=== PATIENT | female | born 1950 | race Two or more races ===

== ENCOUNTER 2016-07-30 08:14 | Day surgery (SDC) | payer MEDICAID ==
[~2016-07-30] VITALS: Ht 167.6 cm; Wt 100.0 kg
[~2016-07-30 08:14] MED LIST: ALBU8.5H5 INH; ASPI-515 PO; BACITRACIN OINT 500U/GM, 15 GM ONE; BUDE10.22 INH; CALC600T4 PO; CHOL20003 PO; CRAN400T6 PO; CYCL-259 PO; EPINEPHRINE TOPICAL SOLN 1 MG/ML, 30ML ONE; FLUO40CA2 PO; FLUORESCEIN OPHTHALMIC 1 MG STRIP ONE; FLUT1AER INH; HYDR200T PO; LEVO50TA5 PO; LIDOCAINE 1%-EPI 1:100K, 30ML ONE; METH2.5T PO; MULT-26 PO; NAPR220C2 PO; OMEG300C PO; OMEP20CA9 PO; OXYMETAZOLINE NASAL SPRAY 0.05%, 15ML ONE; PRED1TAB PO; PROP60CA8 PO; TRAZ100T15 PO; VITA1TAB19 PO
[2016-07-30 08:53] VITALS: BP 150/82
[2016-07-30] MEDS ORDERED: LACTATED RINGERS 1,000 ML IV SCH (09:13)
[2016-07-30] MEDS ORDERED: MULT-717 PO (09:40)
[2016-07-30] MEDS ORDERED: UBID1CAP52 PO (09:40)
[2016-07-30] MEDS ORDERED: FENTANYL PF 100 MCG/2ML ONE (09:40)
[2016-07-30] MEDS ORDERED: PROP40TA PO (09:40)
[2016-07-30] MEDS ORDERED: CRAN300T PO (09:40)
[2016-07-30] MEDS ORDERED: AMLO2.5T PO (09:40)
[2016-07-30] MEDS ORDERED: VENL150T PO (09:40)
[2016-07-30] MEDS ORDERED: LEVO50TA5 PO (09:40)
[2016-07-30] MEDS ORDERED: PANT40TA5 PO (09:40)
[2016-07-30] MEDS ORDERED: ASPI-496 PO (09:40)
[2016-07-30] MEDS ORDERED: ACET1TAB64 PO (09:40)
[2016-07-30] MEDS ORDERED: ACYCLOVIR (09:40)
[2016-07-30] MEDS ORDERED: FLUT50DI NAS (09:40)
[2016-07-30] MEDS ORDERED: MELA10TA PO (09:40)
[2016-07-30] MEDS ORDERED: FISH1CAP PO (09:40)
[2016-07-30] MEDS ORDERED: CHOL20002 PO (09:40)
[2016-07-30] MEDS ORDERED: CYCL-259 PO (09:40)
[2016-07-30] MEDS ORDERED: ATOR40TA78 PO (09:40)
[2016-07-30] MEDS ORDERED: vitamin d (09:40)
[2016-07-30] MEDS ORDERED: PIRO20CA2 PO (09:40)
[2016-07-30] MEDS ORDERED: VITA150T PO (09:40)
[2016-07-30] MEDS ORDERED: ASCO100072 PO (09:40)
[2016-07-30] MEDS ORDERED: TRAZ100T15 PO (09:40)
[2016-07-30] MEDS ORDERED: MOME13HF INH (09:40)
[2016-07-30] MEDS ORDERED: ONDA4TAB7 PO (09:40)
[2016-07-30] MEDS ORDERED: PRIM50TA PO (09:40)
[2016-07-30] MEDS ORDERED: CALC1CAP8 PO (09:40)
[2016-07-30] MEDS ORDERED: OXYcodone 5 MG/5 ML ORAL.SOL UDC PO PRN (10:00)
[2016-07-30] MEDS ORDERED: HYDROmorphone 1 MG/ML, 1ML IV PRN (10:00)
[2016-07-30] MEDS ORDERED: ONDANSETRON 2MG/ML, 2ML IVPush PRN (10:00)
[2016-07-30] MEDS ORDERED: FENTANYL PF 100 MCG/2ML IV PRN (10:00)
[2016-07-30] MEDS ORDERED: hydrALAzine 20 MG/ML, 1ML IV PRN (10:00)
[2016-07-30] MEDS ORDERED: LABETALOL 5MG/ML, 20ML IV PRN (10:00)
[2016-07-30] MEDS ORDERED: PROMETHAZINE 25 MG/ML, 1ML IV PRN (10:00)
[2016-07-30] MEDS ORDERED: OXYcodone 5 MG/5 ML ORAL.SOL UDC ONE (11:08)
[2016-07-30] MEDS ORDERED: ACETAMINOPHEN 650 MG/20.3 ML UDC ONE (11:31)
[2016-07-30] MEDS ORDERED: ACETAMINOPHEN 650 MG/20.3 ML UDC PO ONE (12:00)
[2016-07-30] MEDS ORDERED: PHENYLEPHRINE 10 MG/ML ONE (16:00)
[2016-07-30] MEDS ORDERED: ONDANSETRON 2MG/ML, 2ML ONE (16:00)
[2016-07-30] MEDS ORDERED: GLYCOPYRROLATE 0.2MG/1ML ONE (16:00)
[2016-07-30] MEDS ORDERED: DEXAMETHASONE 4 MG/ML, 1ML ONE (16:00)
[2016-07-30] MEDS ORDERED: SUCCINYLCHOLINE 20 MG/ML, 10ML ONE (16:00)
[2016-07-30] MEDS ORDERED: PROPOFOL 10 MG/ML, 20ML ONE (16:00)
[2016-07-30] MEDS ORDERED: EPHEDRINE 50 MG/ML, 1ML ONE (16:00)
[2016-07-30] MEDS ORDERED: CEFAZOLIN 1,000 MG ONE (16:00)
== END 2016-07-30 13:00 | disposition home or self-care (01) ==
LOC: OUT 08:14
PROVIDERS: ATTEND Otolaryngology
DX: J34.89 Other specified disorders of nose and nasal sinuses (principal); J44.9 Chronic obstructive pulmonary disease, unspecified; E03.9 Hypothyroidism, unspecified; K21.9 Gastro-esophageal reflux disease without esophagitis; G25.0 Essential tremor; Z96.652 Presence of left artificial knee joint; Z72.89 Other problems related to lifestyle; J31.0 Chronic rhinitis
CPT/HCPCS: 30220; 31237; 88304; 93005; J0330; J0690; J1100; J2370; J2405; J2704; J3010; J3490

== ENCOUNTER → 2016-11-18 | Outpatient (CLI) | payer MEDICAID ==
[~2016-11-18] MED LIST changes: +ACET1TAB64 PO; +ACYCLOVIR; +AMLO2.5T PO; +ASCO100072 PO; +ASPI-496 PO; +ATOR40TA78 PO; -BACITRACIN OINT 500U/GM, 15 GM ONE; +CALC1CAP8 PO; +CHOL2000 PO; +CHOL20002 PO; -CHOL20003 PO; +CRAN300T PO; -EPINEPHRINE TOPICAL SOLN 1 MG/ML, 30ML ONE; +FISH1CAP PO; -FLUORESCEIN OPHTHALMIC 1 MG STRIP ONE; +FLUT50DI NAS; -LIDOCAINE 1%-EPI 1:100K, 30ML ONE; +MELA10TA PO; +MOME13HF INH; +MULT-717 PO; +ONDA4TAB7 PO; -OXYMETAZOLINE NASAL SPRAY 0.05%, 15ML ONE; +PANT40TA5 PO; +PIRO20CA2 PO; +PRIM50TA PO; +PROP40TA PO; +UBID1CAP52 PO; +VENL150T PO; +VITA150T PO; +vitamin d
== END | disposition home or self-care (01) ==
LOC: CFH 12:53
PROVIDERS: ATTEND Specialist
DX: Z12.31 Encounter for screening mammogram for malignant neoplasm of breast (principal)
CPT/HCPCS: G0202

== ENCOUNTER → 2016-12-10 | Outpatient (CLI) | payer MEDICAID | END | disposition home or self-care (01) | LOC: RAD 14:16 | PROVIDERS: ATTEND Internal Medicine | DX: R05 Cough (principal) | CPT/HCPCS: 71020 ==

== ENCOUNTER → 2017-12-05 | Outpatient (CLI) | payer MEDICARE ==
[~2017-12-05] MED LIST changes: +CRAN400T4 PO; -CRAN400T6 PO; -HYDR200T PO; +HYDR200T72 PO; +TRAZ-137 PO; -TRAZ100T15 PO
== END | disposition home or self-care (01) ==
LOC: WOUND 13:24
PROVIDERS: ATTEND Family Medicine
DX: T81.31XD Disruption of external operation (surgical) wound, not elsewhere classified, subsequent encounter (principal); J44.9 Chronic obstructive pulmonary disease, unspecified; M06.9 Rheumatoid arthritis, unspecified; M35.3 Polymyalgia rheumatica; Z87.891 Personal history of nicotine dependence; Y83.8 Other surgical procedures as the cause of abnormal reaction of the patient, or of later complication, without mention of misadventure at the time of the procedure
CPT/HCPCS: 97597

== ENCOUNTER → 2017-12-12 | Outpatient (CLI) | payer MEDICARE | END | disposition home or self-care (01) | LOC: WOUND 14:57 | PROVIDERS: ATTEND Family Medicine | DX: T81.31XD Disruption of external operation (surgical) wound, not elsewhere classified, subsequent encounter (principal); J44.9 Chronic obstructive pulmonary disease, unspecified; M06.9 Rheumatoid arthritis, unspecified; M35.3 Polymyalgia rheumatica; Z87.891 Personal history of nicotine dependence; Y83.8 Other surgical procedures as the cause of abnormal reaction of the patient, or of later complication, without mention of misadventure at the time of the procedure | CPT/HCPCS: 11042 ==

== ENCOUNTER → 2017-12-19 | Outpatient (CLI) | payer MEDICARE | END | disposition home or self-care (01) | LOC: WOUND 14:26 | PROVIDERS: ATTEND Family Medicine | DX: T81.31XD Disruption of external operation (surgical) wound, not elsewhere classified, subsequent encounter (principal); J44.9 Chronic obstructive pulmonary disease, unspecified; M35.3 Polymyalgia rheumatica; Z87.891 Personal history of nicotine dependence; M06.80 Other specified rheumatoid arthritis, unspecified site; Y83.8 Other surgical procedures as the cause of abnormal reaction of the patient, or of later complication, without mention of misadventure at the time of the procedure | CPT/HCPCS: 11043 ==

== ENCOUNTER → 2017-12-29 | Outpatient (CLI) | payer MEDICARE ==
[~2017-12-29] MED LIST changes: -AMLO2.5T PO; +AMLO2.5T3 PO; -CHOL20002 PO; +CHOL200085 PO
== END | disposition home or self-care (01) ==
LOC: WOUND 14:45
PROVIDERS: ATTEND Internal Medicine
DX: T81.31XD Disruption of external operation (surgical) wound, not elsewhere classified, subsequent encounter (principal); M35.3 Polymyalgia rheumatica; J44.9 Chronic obstructive pulmonary disease, unspecified; M06.9 Rheumatoid arthritis, unspecified; Z87.891 Personal history of nicotine dependence; X58.XXXD Exposure to other specified factors, subsequent encounter
CPT/HCPCS: 97597

== ENCOUNTER → 2018-01-12 | Outpatient (CLI) | payer MEDICARE | END | disposition home or self-care (01) | LOC: WOUND 13:05 | PROVIDERS: ATTEND Internal Medicine | DX: T81.31XD Disruption of external operation (surgical) wound, not elsewhere classified, subsequent encounter (principal); J44.9 Chronic obstructive pulmonary disease, unspecified; M35.3 Polymyalgia rheumatica; Z87.891 Personal history of nicotine dependence; Y83.8 Other surgical procedures as the cause of abnormal reaction of the patient, or of later complication, without mention of misadventure at the time of the procedure | CPT/HCPCS: 97597 ==

== ENCOUNTER → 2018-02-02 | Outpatient (CLI) | payer MEDICARE | END | disposition home or self-care (01) | LOC: WOUND 13:14 | PROVIDERS: ATTEND Internal Medicine | DX: T81.31XD Disruption of external operation (surgical) wound, not elsewhere classified, subsequent encounter (principal); M35.3 Polymyalgia rheumatica; J44.9 Chronic obstructive pulmonary disease, unspecified; M06.9 Rheumatoid arthritis, unspecified; Z87.891 Personal history of nicotine dependence; Y83.8 Other surgical procedures as the cause of abnormal reaction of the patient, or of later complication, without mention of misadventure at the time of the procedure | CPT/HCPCS: 97597 ==

== ENCOUNTER → 2018-02-16 | Outpatient (CLI) | payer MEDICARE | END | disposition home or self-care (01) | LOC: WOUND 13:10 | PROVIDERS: ATTEND Internal Medicine | DX: T81.31XD Disruption of external operation (surgical) wound, not elsewhere classified, subsequent encounter (principal); M35.3 Polymyalgia rheumatica; J44.9 Chronic obstructive pulmonary disease, unspecified; M06.9 Rheumatoid arthritis, unspecified; Z87.891 Personal history of nicotine dependence; Y83.8 Other surgical procedures as the cause of abnormal reaction of the patient, or of later complication, without mention of misadventure at the time of the procedure | CPT/HCPCS: 99213 ==